=== PATIENT | male | born 1995 | race Caucasian/White ===

== ENCOUNTER 2022-02-28 20:55 | Emergency (ER) | payer BC, OTHER ==
[2022-02-28 21:43] LABS: BLOOD UREA NITROGEN,BUN 21 mg/dL (7.0-18.0); CARBON DIOXIDE,CO2 26.5 mmol/L (21.0-32.0); CHLORIDE,CL 104 mmol/L (98-107); GLUCOSE RANDOM 106 mg/dL (74-106); POTASSIUM,K 3.7 mmol/L (3.5-5.1); SODIUM,NA 142 mmol/L (136-148)
== END 2022-02-28 21:57 | disposition home or self-care (01) ==
LOC: MW.ED 20:55
DX: K62.5 Hemorrhage of anus and rectum (principal)
CPT/HCPCS: 36415; 80053; 85025; 85610; 99283

== ENCOUNTER 2023-04-07 08:19 | Day surgery (SDC) | payer OTHER ==
[~2023-04-07 08:19] MED LIST: Lactated Ringers 1,000 ML IV SCH
[2023-04-07] MEDS ORDERED: propofoL 50 ML ONE (08:57)
== END 2023-04-07 10:25 | disposition home or self-care (01) ==
LOC: MW.SDS 08:19
PROVIDERS: ATTEND Surgery
DX: K63.5 Polyp of colon (principal); K64.8 Other hemorrhoids; E66.9 Obesity, unspecified; Z98.890 Other specified postprocedural states; Z68.34 Body mass index [BMI] 34.0-34.9, adult; Z79.899 Other long term (current) drug therapy
CPT/HCPCS: 45380; J2704; J7120; 00811